=== PATIENT | female | born 1990 | race Two or more races ===

== ENCOUNTER → 2023-04-29 | Outpatient (REF) | payer OTHER ==
[2023-04-29 19:45] LABS: IMMUNOGLOBULIN A 205.3 MG/DL (40-350)
[2023-04-29 19:46] LABS: PERCENT SATURATION 6.5 % (13.2-45.0)
[2023-04-29 19:47] LABS: FERRITIN 23.1 NG/ML (7.3-270.7)
== END ==
LOC: M LAB REF 17:44
PROVIDERS: ATTEND Internal Medicine
DX: R10.13 Epigastric pain (principal); D50.9 Iron deficiency anemia, unspecified

== ENCOUNTER → 2023-05-26 | Outpatient (CLI) | payer OTHER ==
[~2023-05-26] MED LIST: E-Z-GAS II EFFERVESCENT PACKET (SODIUM BICARB./CITRIC ACID/SIMETHICONE) As Ordered ONE; E-Z-HD 98% w/w 340GM SUSP BTL As Ordered ONE; E-Z-PAQUE 96% w/w SUSP 176GM BTL As Ordered ONE
== END ==
LOC: M RAD 09:44 → EDUNIT# 10:00
PROVIDERS: ATTEND Internal Medicine
DX: R10.13 Epigastric pain (principal)

== ENCOUNTER → 2023-06-27 | Outpatient (REF) | payer OTHER ==
[2023-06-30 13:40] LABS: FERRITIN 25.2 NG/ML (7.3-270.7)
[2023-06-30 13:44] LABS: PERCENT SATURATION 8.5 % (13.2-45.0)
== END ==
LOC: M LAB REF 11:37
PROVIDERS: ATTEND Internal Medicine
DX: D64.9 Anemia, unspecified (principal)

== ENCOUNTER → 2023-11-20 | Outpatient (CLI) | payer OTHER | LOC: M LRY 08:18 | PROVIDERS: ATTEND Nurse Practitioner Family | DX: R14.0 Abdominal distension (gaseous) (principal) ==

== ENCOUNTER → 2023-12-15 | Outpatient (REF) | payer OTHER ==
[2023-12-15 18:16] LABS: FERRITIN 26.6 NG/ML (7.3-270.7)
== END ==
LOC: M LAB REF 16:25
PROVIDERS: ATTEND Internal Medicine
DX: D50.9 Iron deficiency anemia, unspecified (principal)

== ENCOUNTER 2024-01-12 11:43 | Day surgery (SDC) | payer OTHER ==
[~2024-01-12] VITALS: Ht 170.2 cm; Wt 70.8 kg
[~2024-01-12 11:43] MED LIST changes: -E-Z-GAS II EFFERVESCENT PACKET (SODIUM BICARB./CITRIC ACID/SIMETHICONE) As Ordered ONE; -E-Z-HD 98% w/w 340GM SUSP BTL As Ordered ONE; -E-Z-PAQUE 96% w/w SUSP 176GM BTL As Ordered ONE; +IRON65TA2 PO; +NS 1,000 ML IV ONE; +OMEP40CA5 PO; +PANT20TA6 PO; +SUCR1TA PO; +propofoL 200 MG/20 ML VIAL As Ordered ONE
[2024-01-12 12:55] VITALS: BP 103/59; TEMP 98.2; O2SAT 97
== END 2024-01-12 13:05 | disposition home or self-care (01) ==
LOC: M OPP 11:43
PROVIDERS: ATTEND Internal Medicine Gastroenterology
DX: D50.9 Iron deficiency anemia, unspecified (principal); D12.4 Benign neoplasm of descending colon; K57.30 Diverticulosis of large intestine without perforation or abscess without bleeding; K64.8 Other hemorrhoids; K21.9 Gastro-esophageal reflux disease without esophagitis; Z79.899 Other long term (current) drug therapy

== ENCOUNTER 2024-01-18 16:49 | Emergency (ER) | payer OTHER ==
[~2024-01-18] VITALS: Ht 170.2 cm; Wt 72.7 kg
[~2024-01-18 16:49] MED LIST changes: -NS 1,000 ML IV ONE; -propofoL 200 MG/20 ML VIAL As Ordered ONE
[2024-01-18 16:51] VITALS: BP 111/62; TEMP 97.4; O2SAT 97
[2024-01-18 17:35] LABS: BASO % 0.3 % (0.0-1.0); EOS # 0.1 10^3/uL (0.0-0.5); EOS % 0.5 % (0.0-3.0); HEMATOCRIT 40.2 % (36.0-47.0); HEMOGLOBIN 13.4 g/dl (12.0-15.5); LYMPH # 1.7 10^3/uL (1.5-5.0); LYMPH % 14.9 % (24.0-44.0); MEAN CORPUSCULAR HEMOGLOBIN 30.2 pg (27.0-33.0); MEAN CORPUSCULAR HGB CONC 33.3 g/dl (32.0-36.5); MEAN CORPUSCULAR VOLUME 90.5 fl (80.0-96.0); MONO # 0.7 10^3/uL (0.0-0.8); MONO % 5.7 % (2.0-8.0); NEUTROPHILS % 78.3 % (36.0-66.0); PLATELET COUNT, AUTOMATED 269 10^3/uL (150-450); RED BLOOD COUNT 4.44 10^6/uL (4.00-5.40); WHITE BLOOD COUNT 11.5 10^3/uL (4.0-10.0)
[2024-01-18 17:59] LABS: LIPASE 34 U/L (12-53)
[2024-01-18] MEDS ORDERED: OMEP40CA4 PO (18:01)
[2024-01-18] MEDS ORDERED: CARA1TAB6 PO (18:01)
[2024-01-18 18:05] LABS: ALBUMIN 4.2 G/DL (3.2-5.2); ALKALINE PHOSPHATASE 107 U/L (46-116); ALT/SGPT 116 U/L (7.0-40); AST/SGOT 259 U/L (<34); BILIRUBIN,DIRECT 0.2 MG/DL (<0.4); BILIRUBIN,TOTAL 0.5 MG/DL (0.3-1.2); TOTAL PROTEIN 7.6 G/DL (5.7-8.2)
[2024-01-18 18:16] LABS: HCG, SERUM QUALITATIVE NEGATIVE (NEGATIVE)
== END 2024-01-18 18:15 | disposition home or self-care (01) ==
LOC: M ED 16:49
DX: K29.50 Unspecified chronic gastritis without bleeding (principal); Z79.899 Other long term (current) drug therapy

== ENCOUNTER → 2024-01-27 | Outpatient (REF) | payer OTHER ==
[~2024-01-27] MED LIST changes: +CARA1TAB6 PO; +OMEP40CA4 PO
[2024-01-27 19:49] LABS: IRON (FE) 24 UG/DL (50-170)
[2024-01-27 20:00] LABS: HEPATITIS B SURFACE ANTIGEN NEGATIVE (NEGATIVE)
[2024-01-27 20:21] LABS: HEPATITIS B CORE ANTIBODY IGM NEGATIVE (NEGATIVE); HEPATITIS C VIRUS ABY INDEX 0.04 INDEX (<0.8)
== END ==
LOC: M LAB REF 17:35
PROVIDERS: ATTEND Internal Medicine
DX: R74.01 Elevation of levels of liver transaminase levels (principal); D50.9 Iron deficiency anemia, unspecified

== ENCOUNTER → 2024-02-26 | Outpatient (CLI) | payer OTHER | LOC: M RAD 08:22 | PROVIDERS: ATTEND Internal Medicine | DX: R74.01 Elevation of levels of liver transaminase levels (principal); R10.11 Right upper quadrant pain; K80.20 Calculus of gallbladder without cholecystitis without obstruction ==

== ENCOUNTER → 2024-04-23 | Outpatient (CLI) | payer OTHER ==
[2024-04-23 16:36] LABS: HEMATOCRIT 38.6 % (36.0-47.0); HEMOGLOBIN 12.9 g/dl (12.0-15.5); MEAN CORPUSCULAR HEMOGLOBIN 29.9 pg (27.0-33.0); MEAN CORPUSCULAR HGB CONC 33.4 g/dl (32.0-36.5); MEAN CORPUSCULAR VOLUME 89.4 fl (80.0-96.0); PLATELET COUNT, AUTOMATED 255 10^3/uL (150-450); RED BLOOD COUNT 4.32 10^6/uL (4.00-5.40); WHITE BLOOD COUNT 8.1 10^3/uL (4.0-10.0)
[2024-04-23 17:04] LABS: ALKALINE PHOSPHATASE 74 U/L (35-104); ALT/SGPT 19 U/L (7.0-40); AST/SGOT 10 U/L (<34); BILIRUBIN,TOTAL 0.3 MG/DL (0.3-1.2); BLOOD UREA NITROGEN 14 MG/DL (9-23); CARBON DIOXIDE LEVEL 29 MMOL/L (20-31); CHLORIDE LEVEL 105 MMOL/L (98-107); CREATININE FOR GFR 0.73 MG/DL (0.55-1.30); GLOMERULAR FILTRATION RATE > 60.0 (>60); GLUCOSE, FASTING 84 MG/DL (60-100); SODIUM LEVEL 143 MMOL/L (136-145); TOTAL PROTEIN 7.6 G/DL (5.7-8.2)
== END ==
LOC: M LAB 16:14
PROVIDERS: ATTEND Surgery
DX: R10.11 Right upper quadrant pain (principal)

== ENCOUNTER → 2024-04-29 | Outpatient (CLI) | payer OTHER ==
[~2024-04-29] MED LIST changes: +ISOVUE-370 76% 100ML VIAL As Ordered ONE
== END ==
LOC: M RAD 15:49
PROVIDERS: ATTEND Surgery
DX: R10.84 Generalized abdominal pain (principal); R10.11 Right upper quadrant pain
CPT/HCPCS: 74177; Q9967

== ENCOUNTER → 2024-08-25 | Outpatient (REF) | payer OTHER ==
[~2024-08-25] MED LIST changes: -ISOVUE-370 76% 100ML VIAL As Ordered ONE
== END ==
LOC: M PLALAB 15:02
PROVIDERS: ATTEND Obstetrics & Gynecology
DX: Z32.02 Encounter for pregnancy test, result negative (principal); N87.0 Mild cervical dysplasia; N72 Inflammatory disease of cervix uteri

== ENCOUNTER 2024-10-26 11:27 | Day surgery (SDC) | payer OTHER ==
[~2024-10-26] VITALS: Ht 170.2 cm; Wt 73.5 kg
[~2024-10-26 11:27] MED LIST changes: +CULT10CA4 PO; +OMEP-173 PO; +QC F0.52 PO
[2024-10-26] MEDS: LR 1,000 ML IV SCH (12:15)
[2024-10-26] MEDS ORDERED: MIDAZOLAM INJ 2 MG/2 ML VIAL As Ordered ONE (12:19)
[2024-10-26] MEDS ORDERED: LIDOCAINE 2% 100 MG/5 ML SDV (FOR ANES.) As Ordered ONE (12:24)
[2024-10-26] MEDS ORDERED: ACETAMINOPHEN 1000MG/100ML IV BAG As Ordered ONE (12:35)
[2024-10-26] MEDS ORDERED: ROCURONIUM BROMIDE 50MG/5ML VIAL As Ordered ONE (12:35)
[2024-10-26] MEDS ORDERED: SCOPOLAMINE 1MG TRANSDERMAL PATCH TOP ONE (12:45)
[2024-10-26] MEDS ORDERED: dexAMETHasone 4 MG/ML 1 ML VIAL As Ordered ONE (13:06)
[2024-10-26] MEDS: ceFAZolin SOD 2 GM IV ONCE IV ONE (13:16)
[2024-10-26] MEDS ORDERED: PHENYLephrine 500MCG 5ML (100MCG/ML) SYRINGE As Ordered ONE (13:29)
[2024-10-26] MEDS ORDERED: SUGAMMADEX SODIUM 200 MG/2 ML VIAL As Ordered ONE (13:35)
[2024-10-26] MEDS ORDERED: ONDANSETRON 4MG 2ML VIAL As Ordered ONE (13:36)
[2024-10-26] MEDS ORDERED: HYDROmorphone HCL 2 MG/ML 1 ML VIAL As Ordered ONE (13:43)
[2024-10-26] MEDS ORDERED: KETOROLAC 30 MG/ML 1 ML VIAL As Ordered ONE (13:45)
[2024-10-26] MEDS ORDERED: HYDROMORPHONE HCL 0.5 MG/0.5 ML SYRINGE IV PRN (14:35)
[2024-10-26] MEDS ORDERED: PROMETHAZINE 25MG/ML 1ML VIAL IV PRN (14:35)
[2024-10-26] MEDS ORDERED: LR 1,000 ML IV SCH (14:35)
[2024-10-26] MEDS: ONDANSETRON 4MG 2ML VIAL IV PRN (14:52)
[2024-10-26 15:39] VITALS: BP 119/68; TEMP 97.7; O2SAT 98
[2024-10-26] MEDS ORDERED: traMADol 50 MG TAB PO PRN (17:15)
[2024-10-26] MEDS ORDERED: NS (Normal Saline) 0.9% 1,000 ML IV SCH (17:15)
[2024-10-26] MEDS ORDERED: KETOROLAC 30 MG/ML 1 ML VIAL IV SCH (20:00)
== END 2024-10-26 16:07 | disposition home or self-care (01) ==
LOC: M SDC 11:27
PROVIDERS: ATTEND Surgery
DX: K80.10 Calculus of gallbladder with chronic cholecystitis without obstruction (principal); K76.0 Fatty (change of) liver, not elsewhere classified; K21.9 Gastro-esophageal reflux disease without esophagitis; Z79.899 Other long term (current) drug therapy
CPT/HCPCS: 47562; 81025; 88304; J0131; J0665; J0690; J1100; J1171; J1885; J2250; J2371; J2405; J3010

== ENCOUNTER → 2025-02-15 | Outpatient (REF) | payer OTHER ==
[2025-02-17 14:23] LABS: HPV APTIMA Not Detected (Not Detected)
== END ==
LOC: M PLALAB 08:49
PROVIDERS: ATTEND Obstetrics & Gynecology
DX: Z12.4 Encounter for screening for malignant neoplasm of cervix (principal); R87.618 Other abnormal cytological findings on specimens from cervix uteri